=== PATIENT | female | born 1935 | race Caucasian/White ===

== ENCOUNTER 2017-10-16 14:28 | Inpatient (IN) | payer MEDICARE, MEDICAID ==
[~2017-10-16] VITALS: Ht 149.9 cm; Wt 81.6 kg
[2017-10-16 15:11] LABS: BASOPHILS # (AUTO) 0.1 K/uL (0.0-8.0); BASOPHILS % (AUTO) 0.5 % (0.0-2.0); EOSINOPHILS # (AUTO) 0.3 K/uL (0.0-0.7); HEMATOCRIT 38.7 % (31.2-41.9); HEMOGLOBIN 13.1 g/dL (10.9-14.3); LYMPHOCYTES # (AUTO) 3.5 K/uL (20.0-40.0); LYMPHOCYTES % (AUTO) 35.2 % (20.5-51.5); MEAN CORPUSCULAR HEMOGLOBIN 34.1 uug (24.7-32.8); MEAN CORPUSCULAR HGB CONC 34 g/dL (32.3-35.6); MEAN CORPUSCULAR VOLUME 100.3 fL (75.5-95.3); MONOCYTES % (AUTO) 9.9 % (0.0-11.0); NEUTROPHILS # (AUTO) 5.1 K/uL (1.8-8.9); NEUTROPHILS % (AUTO) 51.4 % (38.5-71.5); PLATELET COUNT (AUTO) 276 K/uL (179-408); RED BLOOD CELL COUNT(AUTO) 3.86 MIL/uL (3.63-4.92); WHITE BLOOD COUNT (AUTO) 9.9 K/uL (3.8-11.8)
[2017-10-16 15:20] LABS: CARBON DIOXIDE 23 mmol/L (21-32); CHLORIDE 107 mmol/L (98-107); CREATININE 0.6 mg/dL (0.6-1.3); GLUCOSE 55 mg/dL (74-106); POTASSIUM 3.6 mmol/L (3.5-5.1); UREA NITROGEN, BLOOD 14 mg/dL (7-18)
[2017-10-16 15:25] LABS: ALANINE AMINOTRANSFERASE 23 U/L (14-59); ALKALINE PHOSPHATASE 89 U/L (50-136); ASPARTATE AMINOTRANSFERASE 36 U/L (15-37); BILIRUBIN,DIRECT 0.1 mg/dL (0.0-0.2); BILIRUBIN,TOTAL 0.5 mg/dL (0.2-1.0); TOTAL PROTEIN, SERUM 7.4 g/dL (6.4-8.2)
--- NOTE | 2017-10-16 15:25 | NUR ---
PT IS IN ROOM #2A. DR CASANOVA EVALUATED THE PT.
[2017-10-16 15:26] LABS: ETHANOL < 3 MG/DL (0-0)
[2017-10-16] MEDS ORDERED: LISPRO SQ (15:30)
[2017-10-16] MEDS ORDERED: DONE5TAB34 PO (15:30)
[2017-10-16] MEDS ORDERED: MAGN400O6 PO (15:30)
[2017-10-16] MEDS ORDERED: MAG355OR18 PO (15:30)
[2017-10-16] MEDS ORDERED: LEVO125T PO (15:30)
[2017-10-16] MEDS ORDERED: FLUO10CA26 PO (15:30)
[2017-10-16] MEDS ORDERED: ATOR20TA PO (15:30)
[2017-10-16] MEDS ORDERED: ALBU2.5V38 IH (15:30)
[2017-10-16] MEDS ORDERED: BISA10SU12 RC (15:30)
[2017-10-16] MEDS ORDERED: GLIP10TA11 PO (15:30)
[2017-10-16] MEDS ORDERED: AMLO5TAB2 PO (15:30)
[2017-10-16] MEDS ORDERED: ACET325C PO (15:30)
[2017-10-16] MEDS ORDERED: BLOO-140 IN (15:30)
[2017-10-16] MEDS ORDERED: BENA20TA9 PO (15:30)
[2017-10-16] MEDS ORDERED: QUET25TA PO ×3 (15:30)
[2017-10-16] MEDS ORDERED: ASPI-605 PO (15:30)
[2017-10-16 15:42] LABS: *BILIRUBIN,URIN NEGATIVE (NEGATIVE); *BLOOD, URINE NEGATIVE (NEGATIVE); *COLOR,URINE YELLOW (YELLOW); *KETONES,URINE NEGATIVE (NEGATIVE); *PROTEIN,URINE NEGATIVE (NEGATIVE); *UROBILINOGEN,URINE 0.2 E.U./dl (NORMAL); LEUKOCYTE ESTERASE ,URINE 1+ (NEGATIVE); NITRITE, URINE NEGATIVE (NEGATIVE); PH,URINE 6.5 (5.0-8.0); UGLUCOSE NEGATIVE (NEGATIVE)
[2017-10-16 15:46] LABS: *CLARITY,URINE SLIGHTLY HAZY (CLEAR)
[2017-10-16 15:47] LABS: BACTERIA,URINE MODERATE /HPF (NONE SEEN); SQUAMOUS EPITHELIAL CELL,UR MODERATE /HPF (NONE SEEN)
[2017-10-16 15:53] LABS: *AMPHETAMINE, URINE NEGATIVE (NEGATIVE); *BARBITURATE, URINE NEGATIVE (NEGATIVE); *CANNABINOID, URINE NEGATIVE (NEGATIVE); *COCCAINE, URINE NEGATIVE (NEGATIVE); *OPIATE, URINE NEGATIVE (NEGATIVE); *PHENCYCLIDINE SCREEN,URINE NEGATIVE (NEGATIVE)
[2017-10-16 15:56] LABS: THYROID STIMULATING HORMONE 0.561 mIU/mL (0.358-3.740)
[2017-10-16] MEDS ORDERED: IV NORMAL SALINE 1000 ML BAG IV ONE (16:00)
--- NOTE | 2017-10-16 16:35 | NUR ---
MARCELLUS LYNN EVALUATED THE PT.
--- NOTE | 2017-10-16 16:55 | NUR ---
REPORT WAS GIVEN TO MHU RN. PT WAS TRANSFERED TO ROOM #140B.
[2017-10-16] MEDS ORDERED: MAG HYDROX/AL HYDROX/SIMETH 30 ML LIQUID UDC PO PRN ×2 (17:45→18:15)
[2017-10-16] MEDS ORDERED: BISACODYL 10 MG SUPP.RECT RC PRN (17:45)
[2017-10-16] MEDS ORDERED: ACETAMINOPHEN 325 MG TABLET PO PRN ×2 (17:45→18:15)
[2017-10-16] MEDS ORDERED: HYDROCODONE/APAP 5-325MG TABLET PO PRN (17:45)
[2017-10-16] MEDS ORDERED: ALBUTEROL SULFATE 2.5 MG/3 ML NEBU IH PRN (17:45)
[2017-10-16] MEDS ORDERED: MAGNESIUM HYDROXIDE 30 ML LIQUID UDC PO PRN ×3 (17:45→18:15)
[2017-10-16] MEDS ORDERED: Z GUARD REMEDY PASTE 57 GM TUBE TOP PRN (17:45)
[2017-10-16] MEDS ORDERED: ONDANSETRON 4 MG/2 ML VIAL IV PRN (17:45)
[2017-10-16] MEDS ORDERED: DEXTROSE 50% 50 ML DISP.SYRIN IV PRN (17:45)
[2017-10-16] MEDS ORDERED: ZOLPIDEM 5 MG TABLET PO PRN (18:15)
[2017-10-16] MEDS ORDERED: LORAZEPAM 0.5 MG TABLET PO PRN (18:15)
[2017-10-16] MEDS ORDERED: LORAZEPAM 1 MG TABLET PO PRN (19:15)
[2017-10-16] MEDS: ATORVASTATIN 20 MG TABLET PO SCH (20:04)
[2017-10-16] MEDS: BLOOD SUGAR DIAGNOSTIC 1 EACH STRIP VI SCH (20:08)
[2017-10-16 20:30] VITALS: BP 162/68
[2017-10-16] MEDS ORDERED: DONEPEZIL 5 MG TABLET PO SCH (21:00)
--- NOTE | 2017-10-16 21:45 | NUR ---
Pt EASILY AGITATED AND ANGRY. REFUSED SKIN ASSESSMENT. WILL ENDORSE TO DAY SHIFT NURSE. FITTER UP AWARE.
[2017-10-17] MEDS: BLOOD SUGAR DIAGNOSTIC 1 EACH STRIP VI SCH ×4 (06:46→21:15)
[2017-10-17] MEDS: LEVOTHYROXINE SODIUM 125 MCG TABLET PO SCH (06:46)
[2017-10-17 07:30] VITALS: BP 158/65
[2017-10-17 07:40] LABS: BASOPHILS # (AUTO) 0.1 K/uL (0.0-8.0); BASOPHILS % (AUTO) 0.7 % (0.0-2.0); EOSINOPHILS # (AUTO) 0.3 K/uL (0.0-0.7); EOSINOPHILS % (AUTO) 4.2 % (0.0-7.0); HEMATOCRIT 36.6 % (31.2-41.9); HEMOGLOBIN 12.5 g/dL (10.9-14.3); LYMPHOCYTES # (AUTO) 1.7 K/uL (20.0-40.0); LYMPHOCYTES % (AUTO) 22.9 % (20.5-51.5); MEAN CORPUSCULAR HEMOGLOBIN 34.4 uug (24.7-32.8); MEAN CORPUSCULAR HGB CONC 34 g/dL (32.3-35.6); MONOCYTES # (AUTO) 0.6 K/uL (2.0-10.0); MONOCYTES % (AUTO) 8.8 % (0.0-11.0); NEUTROPHILS # (AUTO) 4.6 K/uL (1.8-8.9); NEUTROPHILS % (AUTO) 63.4 % (38.5-71.5); PLATELET COUNT (AUTO) 234 K/uL (179-408); RED BLOOD CELL COUNT(AUTO) 3.62 MIL/uL (3.63-4.92); WHITE BLOOD COUNT (AUTO) 7.3 K/uL (3.8-11.8)
[2017-10-17 08:00] LABS: CARBON DIOXIDE 25 mmol/L (21-32); CHLORIDE 105 mmol/L (98-107); CHOLESTEROL 120 mg/dL (<200); CREATININE 0.7 mg/dL (0.6-1.3); GLUCOSE 155 mg/dL (74-106); HDL CHOLESTEROL 50 mg/dL (40-60); MAGNESIUM 1.6 mg/dL (1.8-2.4); PHOSPHOROUS 2.7 mg/dL (2.5-4.9); POTASSIUM 3.6 mmol/L (3.5-5.1); TRIGLYCERIDES 118 MG/DL (30-150); UREA NITROGEN, BLOOD 10 mg/dL (7-18)
[2017-10-17 08:12] LABS: THYROID STIMULATING HORMONE 0.577 mIU/mL (0.358-3.740)
[2017-10-17 08:42] LABS: CREATINE KINASE, TOTAL 482 U/L (26-192)
[2017-10-17] MEDS: AMLODIPINE 5 MG TABLET PO SCH (09:18)
[2017-10-17] MEDS: BENAZEPRIL HCL 20 MG TABLET PO SCH (09:19)
[2017-10-17] MEDS: ASPIRIN EC 81 MG TABLET.DR PO SCH (09:19)
[2017-10-17] MEDS ORDERED: MAGNESIUM OXIDE 400 MG TABLET PO ONE (13:30)
--- NOTE | 2017-10-17 14:53 | NUR ---
Patient refuse to insulin. medication given. left rib xray done without fracture result. skin assessment given. skin intact. magnesium oxide given one time for hypomagnesia. will continue monitor
[2017-10-17] MEDS: INSULIN REGULAR, HUMAN 300 UNIT/3 ML VIAL SQ PRN ×2 (16:09→21:18)
[2017-10-17 16:51] VITALS: BP 142/70
[2017-10-17 20:00] VITALS: BP 136/55
[2017-10-17] MEDS: ATORVASTATIN 20 MG TABLET PO SCH (21:15)
[2017-10-17] MEDS: DONEPEZIL 5 MG TABLET PO SCH (21:15)
[2017-10-17] MEDS: QUETIAPINE FUMARATE 25 MG TABLET PO SCH (21:15)
[2017-10-18] MEDS: LEVOTHYROXINE SODIUM 125 MCG TABLET PO SCH (06:26)
[2017-10-18] MEDS: BLOOD SUGAR DIAGNOSTIC 1 EACH STRIP VI SCH ×4 (06:38→20:41)
[2017-10-18 07:30] VITALS: BP 167/84
[2017-10-18] MEDS: ASPIRIN EC 81 MG TABLET.DR PO SCH (08:25)
[2017-10-18] MEDS: BENAZEPRIL HCL 20 MG TABLET PO SCH (08:25)
[2017-10-18] MEDS: FLUOXETINE HCL 10 MG CAPSULE PO SCH (08:25)
[2017-10-18] MEDS: AMLODIPINE 5 MG TABLET PO SCH (08:25)
[2017-10-18] MEDS: CEPHALEXIN MONOHYDRATE 500 MG CAPSULE PO SCH ×2 (08:25→17:30)
[2017-10-18] MEDS: INSULIN REGULAR, HUMAN 300 UNIT/3 ML VIAL SQ PRN ×4 (08:26→20:42)
[2017-10-18 12:29] VITALS: BP 136/72
[2017-10-18 16:43] VITALS: BP 139/70
[2017-10-18 19:30] VITALS: BP 119/53
[2017-10-18] MEDS: QUETIAPINE FUMARATE 25 MG TABLET PO SCH (20:07)
[2017-10-18] MEDS: ATORVASTATIN 20 MG TABLET PO SCH (20:07)
[2017-10-18] MEDS: DONEPEZIL 5 MG TABLET PO SCH (20:07)
[2017-10-19] MEDS: LEVOTHYROXINE SODIUM 125 MCG TABLET PO SCH (06:21)
[2017-10-19] MEDS: BLOOD SUGAR DIAGNOSTIC 1 EACH STRIP VI SCH ×4 (06:35→21:28)
--- NOTE | 2017-10-19 06:45 | NUR ---
Pt refused insulin last night. Blood glucose in am was 163. Slept 8.0 hrs. Refused shower in Am. SAfety measures rendered.
[2017-10-19 07:30] VITALS: BP 129/65
[2017-10-19] MEDS: AMLODIPINE 5 MG TABLET PO SCH (08:28)
[2017-10-19] MEDS: BENAZEPRIL HCL 20 MG TABLET PO SCH (08:28)
[2017-10-19] MEDS: ASPIRIN EC 81 MG TABLET.DR PO SCH (08:28)
[2017-10-19] MEDS: FLUOXETINE HCL 10 MG CAPSULE PO SCH (08:28)
[2017-10-19] MEDS: INSULIN REGULAR, HUMAN 300 UNIT/3 ML VIAL SQ PRN ×3 (08:28→16:32)
[2017-10-19] MEDS: CEPHALEXIN MONOHYDRATE 500 MG CAPSULE PO SCH ×2 (08:28→16:32)
--- NOTE | 2017-10-19 12:21 | NUR ---
Initial discharge instructions: Patient currently resides at [facility] [[address], [place] [address]; ]. Per pt, she would like to return there upon discharge. Spoke with Meliza at the facility who states they will be able to accept the patient back SW will speak with pt's daughter, Rigo Milton ([phone]). IRVIN will continue to collaborate with pt, family, and MD regarding discharge planning needs. SW will form a safe and proper discharge plan.
[2017-10-19 15:58] VITALS: BP 149/73
[2017-10-19 19:30] VITALS: BP 166/77
[2017-10-19] MEDS: QUETIAPINE FUMARATE 25 MG TABLET PO SCH (20:40)
[2017-10-19] MEDS: ATORVASTATIN 20 MG TABLET PO SCH (20:40)
[2017-10-19] MEDS: DONEPEZIL 5 MG TABLET PO SCH (20:40)
--- NOTE | 2017-10-20 00:17 | NUR ---
Pt observed sitting in her room on the bed. Pt complied with medication administration. Pt instructed to let staff know if she would like a chef assistant. Pt observed saying "robyn", "felicity". Pt does not want insulin administration, BS 172 @ 2050. Will continue to monitor
[2017-10-20] MEDS: LEVOTHYROXINE SODIUM 125 MCG TABLET PO SCH (06:18)
[2017-10-20] MEDS: BLOOD SUGAR DIAGNOSTIC 1 EACH STRIP VI SCH ×2 (06:19→11:40)
--- NOTE | 2017-10-20 07:08 | NUR ---
Pt was isolative in room, pt complied with meds, BS 162 @ 0792, pt refused AM shower, pt was pleasant and slept 7 hours.
[2017-10-20 07:30] VITALS: BP 120/52
[2017-10-20 07:40] LABS: BASOPHILS % (AUTO) 0.6 % (0.0-2.0); CARBON DIOXIDE 28 mmol/L (21-32); CHLORIDE 104 mmol/L (98-107); CREATININE 0.7 mg/dL (0.6-1.3); EOSINOPHILS # (AUTO) 0.3 K/uL (0.0-0.7); EOSINOPHILS % (AUTO) 3.4 % (0.0-7.0); GLUCOSE 177 mg/dL (74-106); HEMATOCRIT 38.6 % (31.2-41.9); HEMOGLOBIN 13.2 g/dL (10.9-14.3); LYMPHOCYTES % (AUTO) 24.8 % (20.5-51.5); MEAN CORPUSCULAR HEMOGLOBIN 34.1 uug (24.7-32.8); MEAN CORPUSCULAR HGB CONC 34 g/dL (32.3-35.6); MEAN CORPUSCULAR VOLUME 99.7 fL (75.5-95.3); MONOCYTES # (AUTO) 0.8 K/uL (2.0-10.0); MONOCYTES % (AUTO) 9.7 % (0.0-11.0); NEUTROPHILS # (AUTO) 4.8 K/uL (1.8-8.9); NEUTROPHILS % (AUTO) 61.5 % (38.5-71.5); PLATELET COUNT (AUTO) 258 K/uL (179-408); POTASSIUM 3.9 mmol/L (3.5-5.1); RED BLOOD CELL COUNT(AUTO) 3.87 MIL/uL (3.63-4.92); UREA NITROGEN, BLOOD 15 mg/dL (7-18); WHITE BLOOD COUNT (AUTO) 7.9 K/uL (3.8-11.8)
--- NOTE | 2017-10-20 08:00 | NUR ---
received report from shift leader nurse. pt vitals stable. pt refused to have insulin. pt took other medications as well. pt will be discharged to [facility]. no injuries. pt able to use walker with steady gait. no signs of complications. will continue to monitor
[2017-10-20] MEDS: CEPHALEXIN MONOHYDRATE 500 MG CAPSULE PO SCH (08:18)
[2017-10-20] MEDS: BENAZEPRIL HCL 20 MG TABLET PO SCH (08:18)
[2017-10-20 08:19] VITALS: BP 120/52
[2017-10-20] MEDS: ASPIRIN EC 81 MG TABLET.DR PO SCH (08:19)
[2017-10-20] MEDS: FLUOXETINE HCL 10 MG CAPSULE PO SCH (08:19)
[2017-10-20] MEDS: AMLODIPINE 5 MG TABLET PO SCH (08:19)
[2017-10-20] MEDS: INSULIN REGULAR, HUMAN 300 UNIT/3 ML VIAL SQ PRN (08:21)
--- NOTE | 2017-10-20 09:10 | NUR ---
Discharge Note: Patient will be discharged back to [facility] [[address], [place] [address]; ] via private transportation at 11:30am. Spoke with Meliza at the facility who has agreed to arrange transportation for the patient, and states they are ready to accept the patient today. Left a message for patients daughter, Rigo ([phone]) to alert about patients discharge. Patient is alert and oriented x3, denies SI/HI, and is cooperative with discharge plans. Patient will follow up at the facility with Dr. Reddy (Acupressurist) and Dr. Castellon (Psychiatrist).
== END 2017-10-20 12:35 | DRG 881 ==
LOC: ER 14:29 → GPS 16:55
PROVIDERS: ADMIT Psychiatry & Neurology Psychiatry; ATTEND Nurse Practitioner Acute Care
DX: F32.9 Major depressive disorder, single episode, unspecified (principal); F03.91 Unspecified dementia, unspecified severity, with behavioral disturbance; N39.0 Urinary tract infection, site not specified; M62.82 Rhabdomyolysis; E44.1 Mild protein-calorie malnutrition; E03.9 Hypothyroidism, unspecified; E66.9 Obesity, unspecified; Z68.36 Body mass index [BMI] 36.0-36.9, adult; I10 Essential (primary) hypertension; E78.5 Hyperlipidemia, unspecified; Z79.84 Long term (current) use of oral hypoglycemic drugs; Z79.899 Other long term (current) drug therapy; E88.09 Other disorders of plasma-protein metabolism, not elsewhere classified; E11.649 Type 2 diabetes mellitus with hypoglycemia without coma; Z79.82 Long term (current) use of aspirin; Z87.81 Personal history of (healed) traumatic fracture
CPT/HCPCS: 36415; 71045; 71101; 80307; 83735; 84100; 84443; 85025; 87086; 93005; A4663; G0480; J1815; J7040

== ENCOUNTER 2018-05-13 19:18 | Inpatient (IN) | payer MEDICARE, MEDICAID, OTHER ==
[~2018-05-13] VITALS: Ht 149.9 cm; Wt 71.7 kg
[~2018-05-13 19:18] MED LIST: ACET325C3 PO; ALBU2.5V38 IH; AMLO5TAB9 PO; ASPI-605 PO; ATOR20TA PO; BENA20TA9 PO; BISA10SU12 RC; BLOO-140 IN; FLUO10CA26 PO; GLIP10TA11 PO; LEVO125T PO; LISPRO SQ; MAG355OR18 PO; MAGN400O6 PO; QUET25TA PO
--- NOTE | 2018-05-13 19:50 | NUR ---
Patient here for eval from Izzy Johnson. No available sitter at this time per Nursing Creative Services Specialist. Patient AAOx4. Speech is clear, speaks in complete sentences. No respiratory distress noted. No cough, no sob. No cardiovascular distress, all pulses palpable. No Gi/ distress noted. Patient in lowest position on bed, siderails up x2, fall precautions implemented per protocol.
[2018-05-13] MEDS ORDERED: DONE5TAB34 PO (19:59)
[2018-05-13] MEDS ORDERED: METF-442 PO (19:59)
[2018-05-13 20:28] LABS: BASOPHILS # (AUTO) 0.1 K/uL (0.0-8.0); BASOPHILS % (AUTO) 0.6 % (0.0-2.0); EOSINOPHILS # (AUTO) 0.3 K/uL (0.0-0.7); EOSINOPHILS % (AUTO) 4.3 % (0.0-7.0); HEMATOCRIT 37.5 % (31.2-41.9); HEMOGLOBIN 12.7 g/dL (10.9-14.3); LYMPHOCYTES # (AUTO) 1.8 K/uL (20.0-40.0); MEAN CORPUSCULAR HEMOGLOBIN 34.3 uug (24.7-32.8); MEAN CORPUSCULAR HGB CONC 34 g/dL (32.3-35.6); MEAN CORPUSCULAR VOLUME 101.1 fL (75.5-95.3); MONOCYTES # (AUTO) 0.4 K/uL (2.0-10.0); MONOCYTES % (AUTO) 5.6 % (0.0-11.0); NEUTROPHILS # (AUTO) 5.4 K/uL (1.8-8.9); NEUTROPHILS % (AUTO) 66.5 % (38.5-71.5); PLATELET COUNT (AUTO) 269 K/uL (179-408); RED BLOOD CELL COUNT(AUTO) 3.71 MIL/uL (3.63-4.92)
[2018-05-13 20:38] LABS: CARBON DIOXIDE 16 mmol/L (21-32); CHLORIDE 106 mmol/L (98-107); CREATININE 1.2 mg/dL (0.6-1.3); GLUCOSE 144 mg/dL (74-106); POTASSIUM 3.8 mmol/L (3.5-5.1); UREA NITROGEN, BLOOD 19 mg/dL (7-18)
[2018-05-13 20:45] LABS: ALANINE AMINOTRANSFERASE 22 U/L (14-59); ALKALINE PHOSPHATASE 62 U/L (50-136); ASPARTATE AMINOTRANSFERASE 24 U/L (15-37); BILIRUBIN,DIRECT 0.1 mg/dL (0.0-0.2); BILIRUBIN,TOTAL 0.4 mg/dL (0.2-1.0); ETHANOL < 3 MG/DL (0-0); TOTAL PROTEIN, SERUM 6.7 g/dL (6.4-8.2)
[2018-05-13 20:46] LABS: ACETAMINOPHEN < 2.0 ug/mL (10-30)
[2018-05-13 21:06] LABS: *BILIRUBIN,URIN NEGATIVE (NEGATIVE); *CLARITY,URINE CLOUDY (CLEAR); *COLOR,URINE YELLOW (YELLOW); *KETONES,URINE TRACE (NEGATIVE); LEUKOCYTE ESTERASE ,URINE 2+ (NEGATIVE); NITRITE, URINE NEGATIVE (NEGATIVE); PH,URINE 5.5 (5.0-8.0); UGLUCOSE NEGATIVE (NEGATIVE)
[2018-05-13 21:15] LABS: *BLOOD, URINE TRACE (NEGATIVE)
--- NOTE | 2018-05-13 21:17 | NUR ---
Per ER MD, patient is medically cleared. Phone call made to Art from crisis team. Art is on the way.
[2018-05-13 21:18] LABS: *AMPHETAMINE, URINE NEGATIVE (NEGATIVE); *BARBITURATE, URINE NEGATIVE (NEGATIVE); *CANNABINOID, URINE NEGATIVE (NEGATIVE); *COCCAINE, URINE NEGATIVE (NEGATIVE); *OPIATE, URINE NEGATIVE (NEGATIVE); *PHENCYCLIDINE SCREEN,URINE NEGATIVE (NEGATIVE)
[2018-05-13 21:19] LABS: BACTERIA,URINE MANY /HPF (NONE SEEN); SQUAMOUS EPITHELIAL CELL,UR MODERATE /HPF (NONE SEEN); WBC,URINE 50-80 /HPF (0-3)
[2018-05-13 21:20] LABS: MUCUS,URINE MANY /LPF (0-FEW)
--- NOTE | 2018-05-13 21:20 | NUR ---
Patient in bed at lowest position, side rails upx2. Patient asleep NAD, VSS.
--- NOTE | 2018-05-13 22:49 | NUR ---
Patient in bed asleep. EMMA, JESSE.
[2018-05-13] MEDS ORDERED: LEVOFLOXACIN 750 MG TABLET ONE (23:26)
[2018-05-13] MEDS ORDERED: LEVOFLOXACIN 750 MG TABLET PO ONE (23:30)
--- NOTE | 2018-05-14 00:07 | NUR ---
Gave report to Jake LOCKWOOD
--- NOTE | 2018-05-14 00:40 | NUR ---
Patient transfered to MHU in stable condition.
--- NOTE | 2018-05-14 00:40 | NUR ---
Pt. admitted to MHU, under care of Dr. Giordano Belongs List completed
[2018-05-14] MEDS ORDERED: TEMAZEPAM 7.5 MG CAPSULE PO PRN (00:45)
[2018-05-14] MEDS ORDERED: ACETAMINOPHEN 325 MG TABLET PO PRN (00:45)
[2018-05-14] MEDS ORDERED: MAGNESIUM HYDROXIDE 30 ML LIQUID UDC PO PRN ×2 (00:45→07:45)
[2018-05-14] MEDS ORDERED: CLONAZEPAM 0.5 MG TABLET PO PRN (00:45)
[2018-05-14] MEDS ORDERED: MAG HYDROX/AL HYDROX/SIMETH 30 ML LIQUID UDC PO PRN ×2 (00:45→07:45)
--- NOTE | 2018-05-14 00:45 | NUR ---
ADMITTED PT FROM ER VIA W/C, CALM & COOPERATIVE, NO SIGNS OF AGGRESSIONS. UNDERSTAND & SPEAK URDU ONLY, UNABLE TO DO NRSG. ASSESSTMENT.PT. REFUSED TO CHANGE TO PT. SINGH. STATED SHE IS TIRED & WANT TO SLEEP. NOT IN ANY DISTRESS.
--- NOTE | 2018-05-14 01:30 | NUR ---
SLEEPING AT THIS TIME.
--- NOTE | 2018-05-14 06:20 | NUR ---
called antonietta callejas, daughter to update pts. condition
[2018-05-14 07:30] VITALS: BP 107/68
[2018-05-14] MEDS ORDERED: BISACODYL 10 MG SUPP.RECT RC PRN (07:45)
[2018-05-14] MEDS ORDERED: Medication Not On Formulary EA (Acetaminophen 650 MG) PO PRN (07:45)
[2018-05-14] MEDS ORDERED: ALBUTEROL SULFATE 2.5 MG/3 ML NEBU IH PRN (07:45)
[2018-05-14] MEDS ORDERED: DEXTROSE 50% 50 ML DISP.SYRIN IV PRN (08:45)
[2018-05-14] MEDS ORDERED: Medication Not On Formulary EA (Metformin Hcl 1,000 MG) PO SCH (09:00)
[2018-05-14] MEDS: ASPIRIN EC 81 MG TABLET.DR PO SCH (09:28)
[2018-05-14] MEDS: BLOOD SUGAR DIAGNOSTIC 1 EACH STRIP VI SCH ×3 (12:39→21:21)
--- NOTE | 2018-05-14 12:39 | NUR ---
Initial Discharge Instructions: Patient is a current resident of [facility] [[address], [place] [address]; [phone]]. Per pt, she enjoys living there and would like to return. Spoke with pt's daughter, Rigo Milton ([phone]) who states she would like her mother to return to [facility] when ready for discharge. Spoke with Meliza at the facility who reports that the patient can return when stable for discharge. SW will continue to collaborate with pt, family, and MD regarding most appropriate discharge plans for this patient. SW will form a safe and proper discharge.
[2018-05-14] MEDS: FLUOXETINE HCL 20 MG CAPSULE PO SCH (13:06)
[2018-05-14] MEDS: BENAZEPRIL HCL 20 MG TABLET PO SCH ×2 (13:07→13:22)
[2018-05-14] MEDS: AMLODIPINE 5 MG TABLET PO SCH (13:08)
[2018-05-14] MEDS: CEphaleXIN 500 MG CAPSULE PO SCH ×2 (13:10→21:23)
[2018-05-14] MEDS: QUETIAPINE FUMARATE 25 MG TABLET PO SCH ×2 (13:10→17:17)
[2018-05-14 16:00] VITALS: BP 116/69
--- NOTE | 2018-05-14 19:00 | NUR ---
1744 PATIENT FOUND ON THE SITTING ON THE FLOOR. NO INJURY NOTED. V/S TAKEN AND RECORDED. 1810 EQUIPMENT ENGINEER, MARI TUCKER NOTIFIED WITH NO NEW ORDER, 1814 PATIENT DAUGHTER, NAA NOTIFIED ABOUT THE FALL INCIDENT. ENDORSED TO NEXT SHIFT TO MONITOR PATIENT ANY ABNORMAL SYMPTOMS RELATED TO FALL.
[2018-05-14 20:30] VITALS: BP 93/67
[2018-05-14] MEDS: INSULIN REGULAR, HUMAN 300 UNIT/3 ML VIAL SQ PRN (21:23)
[2018-05-14] MEDS: ATORVASTATIN 20 MG TABLET PO SCH (21:23)
[2018-05-15] MEDS: CEphaleXIN 500 MG CAPSULE PO SCH ×3 (06:05→21:13)
[2018-05-15] MEDS: BLOOD SUGAR DIAGNOSTIC 1 EACH STRIP VI SCH ×4 (06:31→21:05)
[2018-05-15 07:30] VITALS: BP 107/53
[2018-05-15] MEDS: BENAZEPRIL HCL 20 MG TABLET PO SCH (09:00)
[2018-05-15] MEDS: AMLODIPINE 5 MG TABLET PO SCH (09:00)
[2018-05-15] MEDS: ASPIRIN EC 81 MG TABLET.DR PO SCH (10:51)
[2018-05-15] MEDS: FLUOXETINE HCL 20 MG CAPSULE PO SCH (10:51)
[2018-05-15] MEDS: QUETIAPINE FUMARATE 25 MG TABLET PO SCH ×2 (10:51→17:16)
[2018-05-15 16:58] VITALS: BP 106/64
[2018-05-15] MEDS: ATORVASTATIN 20 MG TABLET PO SCH (20:30)
[2018-05-15 21:30] VITALS: BP 127/64
[2018-05-16] MEDS: CEphaleXIN 500 MG CAPSULE PO SCH ×3 (06:14→22:23)
[2018-05-16] MEDS: BLOOD SUGAR DIAGNOSTIC 1 EACH STRIP VI SCH ×4 (06:25→20:00)
[2018-05-16 07:30] VITALS: BP 100/63
[2018-05-16] MEDS: BENAZEPRIL HCL 20 MG TABLET PO SCH (08:16)
[2018-05-16] MEDS: FLUOXETINE HCL 20 MG CAPSULE PO SCH (08:17)
[2018-05-16] MEDS: AMLODIPINE 5 MG TABLET PO SCH (08:17)
[2018-05-16] MEDS: QUETIAPINE FUMARATE 25 MG TABLET PO SCH ×3 (08:17→16:58)
[2018-05-16] MEDS: ASPIRIN EC 81 MG TABLET.DR PO SCH (08:19)
[2018-05-16] MEDS: INSULIN REGULAR, HUMAN 300 UNIT/3 ML VIAL SQ PRN ×3 (08:26→20:03)
[2018-05-16 15:36] VITALS: BP 92/52
[2018-05-16 20:00] VITALS: BP 115/69
[2018-05-16] MEDS: ATORVASTATIN 20 MG TABLET PO SCH (20:00)
[2018-05-17] MEDS: CEphaleXIN 500 MG CAPSULE PO SCH ×3 (06:33→21:19)
[2018-05-17] MEDS: BLOOD SUGAR DIAGNOSTIC 1 EACH STRIP VI SCH ×4 (06:33→21:20)
[2018-05-17 07:30] VITALS: BP 131/58
[2018-05-17] MEDS: FLUOXETINE HCL 20 MG CAPSULE PO SCH (08:58)
[2018-05-17] MEDS: ASPIRIN EC 81 MG TABLET.DR PO SCH (08:58)
[2018-05-17] MEDS: QUETIAPINE FUMARATE 25 MG TABLET PO SCH ×3 (08:58→17:18)
[2018-05-17] MEDS: AMLODIPINE 5 MG TABLET PO SCH (08:59)
[2018-05-17] MEDS: BENAZEPRIL HCL 20 MG TABLET PO SCH (08:59)
[2018-05-17 12:00] VITALS: BP 167/56
[2018-05-17] MEDS: INSULIN REGULAR, HUMAN 300 UNIT/3 ML VIAL SQ PRN ×3 (12:19→21:22)
[2018-05-17 15:09] VITALS: BP 110/53
[2018-05-17 20:03] VITALS: BP 100/53
[2018-05-17] MEDS: ATORVASTATIN 20 MG TABLET PO SCH (21:19)
--- NOTE | 2018-05-18 04:37 | NUR ---
Received patient in bed. AAO x1, confused. No acute distress was noted. Patient is calm and cooperative. No aggressive behavior noted. Compliant with medication. All due medication given as ordered. Accucheck done BS: 146 @2100, 2 units insulin coverage based on sliding scale. Safety measures maintained. Fall precaution observed. Continue to monitor and will endorse to the day shift nurse accordingly.
[2018-05-18] MEDS: CEphaleXIN 500 MG CAPSULE PO SCH ×3 (06:07→21:21)
[2018-05-18] MEDS: BLOOD SUGAR DIAGNOSTIC 1 EACH STRIP VI SCH ×4 (06:35→20:51)
[2018-05-18 07:30] VITALS: BP 92/51
[2018-05-18] MEDS: ASPIRIN EC 81 MG TABLET.DR PO SCH (08:33)
[2018-05-18] MEDS: BENAZEPRIL HCL 20 MG TABLET PO SCH (08:34)
[2018-05-18] MEDS: AMLODIPINE 5 MG TABLET PO SCH (08:35)
[2018-05-18] MEDS: FLUOXETINE HCL 20 MG CAPSULE PO SCH (08:35)
[2018-05-18] MEDS: QUETIAPINE FUMARATE 25 MG TABLET PO SCH ×3 (08:35→16:31)
--- NOTE | 2018-05-18 10:58 | NUR ---
Firearms Report: IRVIN completed and submitted [employer] Firearms Report for 5250 GD certification.
[2018-05-18] MEDS: INSULIN REGULAR, HUMAN 300 UNIT/3 ML VIAL SQ PRN ×3 (11:36→21:00)
[2018-05-18 16:52] VITALS: BP 98/62
--- NOTE | 2018-05-18 18:24 | NUR ---
received patien asleep on bed, alert, patient denies pain, assist patient with her breakfast, patient compliant to care and medicine, current BP at 92/51, anti HTN meds on hold as ordered, acchucheck at 11;30 at 249 , insulin was given per sliding scale, patient fall risk, non skid socks at all time, bed alarm was on for safety,remind the patient to use call light if need help, and made rounds frequently will continue monitor
--- NOTE | 2018-05-18 20:00 | NUR ---
RECEIVED PATIENT IN HER ROOM IN BED ASLEEP, BUT EASILY AROUSABLE. SHE IS NOTED A/O X 1, CALM AND PLEASANT UPON APPROACHED. UNSTEADY GAIT IS NOTED, (FALL PRECAUTION IN PLACE) BED AT LOWEST POSITION WITH WHEELS LOCKED ALARM ON AND FREQUENT HEAD CHECKS. NO AGGRESSIVE/COMBATIVE BX IS NOTED OR REPORTED AT THIS TIME. V/S STABLE, PT WAS REASSURED FOR HER SAFETY. WILL CONTINUE TO MONITOR.
[2018-05-18 20:27] VITALS: BP 97/51
[2018-05-18] MEDS: ATORVASTATIN 20 MG TABLET PO SCH (20:51)
[2018-05-19] MEDS: CEphaleXIN 500 MG CAPSULE PO SCH ×2 (06:12→13:21)
[2018-05-19] MEDS: BLOOD SUGAR DIAGNOSTIC 1 EACH STRIP VI SCH ×3 (06:48→16:17)
[2018-05-19 07:47] LABS: BASOPHILS # (AUTO) 0.1 K/uL (0.0-8.0); BASOPHILS % (AUTO) 1.2 % (0.0-2.0); EOSINOPHILS # (AUTO) 0.3 K/uL (0.0-0.7); EOSINOPHILS % (AUTO) 5.2 % (0.0-7.0); HEMOGLOBIN 12.4 g/dL (10.9-14.3); LYMPHOCYTES % (AUTO) 30.5 % (20.5-51.5); MEAN CORPUSCULAR HEMOGLOBIN 34.5 uug (24.7-32.8); MEAN CORPUSCULAR HGB CONC 34 g/dL (32.3-35.6); MEAN CORPUSCULAR VOLUME 102.7 fL (75.5-95.3); MONOCYTES # (AUTO) 0.5 K/uL (2.0-10.0); MONOCYTES % (AUTO) 7.2 % (0.0-11.0); NEUTROPHILS # (AUTO) 3.6 K/uL (1.8-8.9); NEUTROPHILS % (AUTO) 55.9 % (38.5-71.5); PLATELET COUNT (AUTO) 264 K/uL (179-408); RED BLOOD CELL COUNT(AUTO) 3.61 MIL/uL (3.63-4.92); WHITE BLOOD COUNT (AUTO) 6.5 K/uL (3.8-11.8)
[2018-05-19 08:00] LABS: CARBON DIOXIDE 21 mmol/L (21-32); CHLORIDE 109 mmol/L (98-107); CREATININE 0.9 mg/dL (0.6-1.3); GLUCOSE 98 mg/dL (74-106); MAGNESIUM 1.9 mg/dL (1.8-2.4); POTASSIUM 3.7 mmol/L (3.5-5.1); UREA NITROGEN, BLOOD 26 mg/dL (7-18)
[2018-05-19 08:03] VITALS: BP 110/59
[2018-05-19] MEDS: AMLODIPINE 5 MG TABLET PO SCH (08:35)
[2018-05-19] MEDS: QUETIAPINE FUMARATE 25 MG TABLET PO SCH ×2 (08:35→17:27)
[2018-05-19] MEDS: FLUOXETINE HCL 20 MG CAPSULE PO SCH (08:35)
[2018-05-19] MEDS: ASPIRIN EC 81 MG TABLET.DR PO SCH (08:35)
[2018-05-19] MEDS: BENAZEPRIL HCL 20 MG TABLET PO SCH (08:36)
[2018-05-19 16:15] VITALS: BP 106/54
[2018-05-19] MEDS: INSULIN REGULAR, HUMAN 300 UNIT/3 ML VIAL SQ PRN (16:54)
--- NOTE | 2018-05-19 17:16 | NUR ---
GROUP NOTE: Patients were asked to draw a picture of how they see themselves and reflect on picture. Subjective: "..." Objective: Patient was asleep and unable to be woken up. Assessment: Patient presented calm and was sleeping. shell worker unable to assess patient. Plan: shell worker will continue to encourage group attendance as scheduled. shell worker will continue to provide support to the patient to encourage interaction with peers.
--- NOTE | 2018-05-19 18:36 | NUR ---
received patient asleep on bed, arousable, patient assisted with her breakfast, compliant to medication, patient verbalizes that his cold, labs result return and updated attending physician, with DC order to Med surg unit , will continue monitor
[2018-05-19 18:42] LABS: *BILIRUBIN,URIN NEGATIVE (NEGATIVE); *BLOOD, URINE 3+ (NEGATIVE); *CLARITY,URINE SLIGHTLY CLOUDY (CLEAR); *COLOR,URINE YELLOW (YELLOW); *KETONES,URINE NEGATIVE (NEGATIVE); *UROBILINOGEN,URINE 0.2 E.U./dl (NORMAL); LEUKOCYTE ESTERASE ,URINE NEGATIVE (NEGATIVE); NITRITE, URINE NEGATIVE (NEGATIVE); PH,URINE 6.5 (5.0-8.0); UGLUCOSE NEGATIVE (NEGATIVE)
[2018-05-19 18:57] LABS: *URINE TOTAL PROTEIN RANDOM 18.4 mg/dL (<150/24HR)
[2018-05-19 19:02] LABS: BACTERIA,URINE FEW /HPF (NONE SEEN); RBC,URINE 80-100 /HPF (0-3); SQUAMOUS EPITHELIAL CELL,UR MANY /HPF (NONE SEEN)
--- NOTE | 2018-05-19 19:44 | NUR ---
Pt being transferred to med surg under the care of Geronimo for hyperthyroidism and weakness. Report given to Caridad in med surge. Pt a+ox2, VS stable, denies pain, in no acute physical distress at this time. Transferred via gurney with floor staff, all paperwork and chart sent, including 5250. Voicemail left for Pt's daughter Yarelis Milton regarding Pt transfer.
== END 2018-05-19 20:13 | disposition short-term general hospital (02) | DRG 885 ==
LOC: ER 19:18 → GPS 05-14 00:26
PROVIDERS: ADMIT Psychiatry & Neurology Psychiatry; ATTEND Nurse Practitioner Acute Care
DX: F33.3 Major depressive disorder, recurrent, severe with psychotic symptoms (principal); N17.0 Acute kidney failure with tubular necrosis; N39.0 Urinary tract infection, site not specified; E44.1 Mild protein-calorie malnutrition; B96.89 Other specified bacterial agents as the cause of diseases classified elsewhere; F03.90 Unspecified dementia, unspecified severity, without behavioral disturbance, psychotic disturbance, mood disturbance, and anxiety; E78.5 Hyperlipidemia, unspecified; E03.9 Hypothyroidism, unspecified; Z79.84 Long term (current) use of oral hypoglycemic drugs; Z79.51 Long term (current) use of inhaled steroids; Z79.899 Other long term (current) drug therapy; I25.10 Atherosclerotic heart disease of native coronary artery without angina pectoris; E86.0 Dehydration; R80.9 Proteinuria, unspecified; M62.81 Muscle weakness (generalized); J45.909 Unspecified asthma, uncomplicated; Z68.31 Body mass index [BMI] 31.0-31.9, adult; E66.9 Obesity, unspecified; Z71.3 Dietary counseling and surveillance; Z79.890 Hormone replacement therapy; Z91.19 Patient's noncompliance with other medical treatment and regimen; Z95.5 Presence of coronary angioplasty implant and graft; E11.8 Type 2 diabetes mellitus with unspecified complications
CPT/HCPCS: 36415; 71045; 80307; 83735; 84100; 84156; 84300; 84443; 85025; 93005; 97110; 97116; 97530; A4663; G0480; G0480-TC; J1815

== ENCOUNTER 2018-05-19 20:47 | Inpatient (IN) | payer MEDICARE, OTHER ==
[~2018-05-19] VITALS: Ht 157.5 cm; Wt 72.6 kg
[~2018-05-19 20:47] MED LIST changes: -BLOO-140 IN; -FLUO10CA26 PO; -GLIP10TA11 PO; -LEVO125T PO; -LISPRO SQ; +METF-442 PO; -QUET25TA PO
--- NOTE | 2018-05-19 21:00 | NUR ---
THIS IS AN 82 Y.O FEMALE TRANSFERRED FROM MHU. ADMITTING DX FOR GENERAL WEAKNESS AND HYPOTHROIDISM, SHES AAOX2 WITH CONFUSION, DENIES PAIN OR ANY DISTRESS ON ASSESSMENT. SHE HAS 1:1 SITTER FOR SAFETY. ADMISSION ASSESSMENT DONE PER PROTOCOL.
[2018-05-19] MEDS ORDERED: MAGNESIUM HYDROXIDE 30 ML LIQUID UDC PO PRN ×2 (21:30→22:00)
[2018-05-19] MEDS ORDERED: HYDROCODONE/APAP 5-325MG TABLET PO PRN (21:30)
[2018-05-19] MEDS ORDERED: ONDANSETRON 4 MG/2 ML VIAL IV PRN (21:30)
[2018-05-19] MEDS ORDERED: DEXTROSE 50% 50 ML DISP.SYRIN IV PRN (21:30)
[2018-05-19] MEDS ORDERED: ACETAMINOPHEN 325 MG TABLET PO PRN (21:30)
[2018-05-19] MEDS ORDERED: MAG HYDROX/AL HYDROX/SIMETH 30 ML LIQUID UDC PO PRN (22:00)
[2018-05-19] MEDS ORDERED: ALBUTEROL SULFATE 2.5 MG/3 ML NEBU IH PRN (22:00)
[2018-05-19] MEDS ORDERED: BISACODYL 10 MG SUPP.RECT RC PRN (22:00)
[2018-05-19] MEDS: BLOOD SUGAR DIAGNOSTIC 1 EACH STRIP VI SCH (22:09)
[2018-05-19] MEDS: INSULIN REGULAR, HUMAN 300 UNIT/3 ML VIAL SQ PRN (22:15)
[2018-05-19] MEDS ORDERED: LEVOTHYROXINE SODIUM 100 MCG VIAL IV ONE ×3 (22:30→23:39)
[2018-05-19] MEDS: CEphaleXIN 500 MG CAPSULE PO SCH (22:36)
[2018-05-19] MEDS: IV D5/ 0.9% NACL 1,000 ML IV PRN (22:36)
[2018-05-20] VITALS: BP 118/61
[2018-05-20 04:02] VITALS: BP 110/55
--- NOTE | 2018-05-20 05:51 | NUR ---
PATIENT SLEPT WELL THROUGHOUT THE SHIFT, NO S/S OF PAIN OR ANY DISTRESS ON THIS SHIFT. TEMP WNL 98.3 AT THIS TIME. SITTER REMAINS AT BEDSIDE CLOSELY MONITORING PATIENT
[2018-05-20] MEDS: CEphaleXIN 500 MG CAPSULE PO SCH ×3 (06:09→21:58)
[2018-05-20] MEDS: PANTOPRAZOLE SODIUM 40 MG TABLET.DR PO SCH (06:09)
[2018-05-20] MEDS: BLOOD SUGAR DIAGNOSTIC 1 EACH STRIP VI SCH ×4 (06:14→21:35)
[2018-05-20 07:20] LABS: BASOPHILS # (AUTO) 0.1 K/uL (0.0-8.0); BASOPHILS % (AUTO) 0.9 % (0.0-2.0); EOSINOPHILS # (AUTO) 0.3 K/uL (0.0-0.7); EOSINOPHILS % (AUTO) 4.4 % (0.0-7.0); HEMATOCRIT 36.4 % (31.2-41.9); HEMOGLOBIN 12.2 g/dL (10.9-14.3); LYMPHOCYTES # (AUTO) 1.3 K/uL (20.0-40.0); LYMPHOCYTES % (AUTO) 19.2 % (20.5-51.5); MEAN CORPUSCULAR HEMOGLOBIN 34.4 uug (24.7-32.8); MEAN CORPUSCULAR HGB CONC 33 g/dL (32.3-35.6); MONOCYTES # (AUTO) 0.4 K/uL (2.0-10.0); MONOCYTES % (AUTO) 6.1 % (0.0-11.0); NEUTROPHILS # (AUTO) 4.9 K/uL (1.8-8.9); NEUTROPHILS % (AUTO) 69.4 % (38.5-71.5); PLATELET COUNT (AUTO) 270 K/uL (179-408); RED BLOOD CELL COUNT(AUTO) 3.53 MIL/uL (3.63-4.92)
[2018-05-20 07:38] LABS: CARBON DIOXIDE 23 mmol/L (21-32); CHLORIDE 109 mmol/L (98-107); CHOLESTEROL 159 mg/dL (<200); CREATININE 0.8 mg/dL (0.6-1.3); GLUCOSE 171 mg/dL (74-106); HDL CHOLESTEROL 62 mg/dL (40-60); MAGNESIUM 1.8 mg/dL (1.8-2.4); PHOSPHOROUS 2.4 mg/dL (2.5-4.9); POTASSIUM 3.3 mmol/L (3.5-5.1); TRIGLYCERIDES 130 MG/DL (30-150); UREA NITROGEN, BLOOD 20 mg/dL (7-18)
[2018-05-20 07:44] VITALS: BP 100/51
[2018-05-20] MEDS: INSULIN REGULAR, HUMAN 300 UNIT/3 ML VIAL SQ PRN ×3 (08:56→21:39)
[2018-05-20] MEDS: ASPIRIN EC 81 MG TABLET.DR PO SCH (08:57)
[2018-05-20] MEDS ORDERED: BENAZEPRIL HCL 20 MG TABLET PO SCH (09:00)
[2018-05-20] MEDS ORDERED: AMLODIPINE 5 MG TABLET PO SCH (09:00)
[2018-05-20] MEDS: LEVOTHYROXINE SODIUM 125 MCG TABLET PO SCH (10:25)
[2018-05-20] MEDS ORDERED: POTASSIUM CHLORIDE 20 MEQ TAB.PRT.SR PO ONE (11:15)
[2018-05-20] MEDS ORDERED: NEUTRA PHOS PACKET PO ONE (11:15)
[2018-05-20 12:00] VITALS: BP 101/62
[2018-05-20] MEDS: IV D5/ 0.9% NACL 1,000 ML IV PRN (12:40)
[2018-05-20] MEDS: FLUOXETINE HCL 20 MG CAPSULE PO SCH (15:43)
[2018-05-20 16:00] VITALS: BP 106/66
[2018-05-20] MEDS: Z GUARD REMEDY PASTE 57 GM TUBE TOP PRN ×2 (17:44→20:36)
--- NOTE | 2018-05-20 18:32 | NUR ---
PATIENT WAS COOPERATIVE DURING THE SHIFT, MENTAL STATUS IS IMPROVING. GOOD APPETITE, GOOD FLUID INTAKE. PATIENT IS MAINLY IN BED NAPPING INTERMITTENTLY. AMBULATES TO THE BATHROOM WITH ASSISTANCE OF THE SITTER. PATIENT TOOK ALL HER MEDICATIONS. IV WAS SWITCHED TO THE RIGHT WRIST DUE TO PAIN. PATIENT HAS A DISCOLORATION OF THE TOE ON THE TOE ON THE RIGHT FOOT, PAINFUL TO TOUCH. XRAYS DONE. PATIENT IS ON VOLUNTARY STATUS NOW.
--- NOTE | 2018-05-20 19:00 | NUR ---
RECEIVED REPORT AT BEDSIDE FROM MELBA ROSE. PATIENT AWAKE AND ALERT IN BED. PATIENT HAS NO COMPLAINT OF PAIN OR DISCOMFORT AT THIS TIME. NO ACUTE DISTRESS NOTED OR OBSERVED BY THIS NURSE. 20 G IV IN RIGHT WRIST INTACT AND PATENT WITH IV FLUIDS INFUSING AT 75 mL/HR. 1:1 SITTER AT BEDSIDE FOR PATIENT SAFETY. CALL LIGHT WITHIN REACH AT ALL TIMES. ROOM AND FLOOR FREE OF CLUTTER. WILL CONTINUE TO MONITOR.
[2018-05-20 20:00] VITALS: BP 100/59
[2018-05-20] MEDS: QUETIAPINE FUMARATE 25 MG TABLET PO SCH (20:53)
[2018-05-20] MEDS ORDERED: LEVOTHYROXINE SODIUM 100 MCG VIAL IV SCH (21:00)
[2018-05-20] MEDS: ATORVASTATIN 20 MG TABLET PO SCH (21:35)
[2018-05-21] VITALS: BP 103/55
--- NOTE | 2018-05-21 | NUR ---
Patient resting comfortably, no sign of distress noted. IVF infusing wel, IV site patent. Sinus dedrick on Tele. 1:1 sitter in room for patient's safety.
[2018-05-21] MEDS: IV D5/ 0.9% NACL 1,000 ML IV PRN ×2 (01:01→17:37)
[2018-05-21 04:00] VITALS: BP 90/50
--- NOTE | 2018-05-21 05:00 | NUR ---
PATIENT ASLEEP, RESTING COMFORTABLY WITH 1:1 SITTER IN ROOM TO PROVIDE FOR PATIENT SAFETY. NO SIGNS OF ACUTE DISTRESS OR DISCOMFORT NOTED OR OBSERVED. IV ON RIGHT WRIST INTACT AND PATENT WITH D5ns RUNNING AT 75 mL/HR. CALL LIGHT WITHIN REACH AT ALL TIMES. ROOM AND FLOOR FREE OF CLUTTER. WILL CONTINUE TO MONITOR.
[2018-05-21] MEDS: BLOOD SUGAR DIAGNOSTIC 1 EACH STRIP VI SCH ×4 (06:06→21:59)
[2018-05-21] MEDS: CEphaleXIN 500 MG CAPSULE PO SCH ×3 (06:18→21:22)
[2018-05-21] MEDS: PANTOPRAZOLE SODIUM 40 MG TABLET.DR PO SCH (06:18)
[2018-05-21] MEDS: LEVOTHYROXINE SODIUM 125 MCG TABLET PO SCH (06:18)
--- NOTE | 2018-05-21 06:30 | NUR ---
PATIENT STILL C/O ON & OFF HEADACHE, TYLENOL 650 MG P.O ADM. DENIES CHEST PAIN AT THIS TIME. SINUS RHYTHM ON TELE. Addendum: 05/21/18 at 0735 by ANTONIO KABA RN PLS DISREGARD ABOVE NOTES WRONG ENTRY OF NOTES.
[2018-05-21 06:39] LABS: BASOPHILS # (AUTO) 0.1 K/uL (0.0-8.0); BASOPHILS % (AUTO) 1.1 % (0.0-2.0); EOSINOPHILS # (AUTO) 0.3 K/uL (0.0-0.7); EOSINOPHILS % (AUTO) 6.5 % (0.0-7.0); HEMATOCRIT 31.6 % (31.2-41.9); HEMOGLOBIN 10.7 g/dL (10.9-14.3); LYMPHOCYTES # (AUTO) 1.5 K/uL (20.0-40.0); LYMPHOCYTES % (AUTO) 29.2 % (20.5-51.5); MEAN CORPUSCULAR HEMOGLOBIN 34.8 uug (24.7-32.8); MEAN CORPUSCULAR HGB CONC 34 g/dL (32.3-35.6); MEAN CORPUSCULAR VOLUME 102.9 fL (75.5-95.3); MONOCYTES # (AUTO) 0.4 K/uL (2.0-10.0); MONOCYTES % (AUTO) 8.2 % (0.0-11.0); NEUTROPHILS # (AUTO) 2.9 K/uL (1.8-8.9); PLATELET COUNT (AUTO) 232 K/uL (179-408); RED BLOOD CELL COUNT(AUTO) 3.08 MIL/uL (3.63-4.92); WHITE BLOOD COUNT (AUTO) 5.2 K/uL (3.8-11.8)
[2018-05-21 06:52] LABS: ALANINE AMINOTRANSFERASE 29 U/L (14-59); ALKALINE PHOSPHATASE 47 U/L (50-136); ASPARTATE AMINOTRANSFERASE 31 U/L (15-37); BILIRUBIN,TOTAL 0.3 mg/dL (0.2-1.0); CARBON DIOXIDE 21 mmol/L (21-32); CHLORIDE 113 mmol/L (98-107); CREATININE 0.9 mg/dL (0.6-1.3); GLUCOSE 154 mg/dL (74-106); MAGNESIUM 1.8 mg/dL (1.8-2.4); PHOSPHOROUS 2.6 mg/dL (2.5-4.9); POTASSIUM 3.6 mmol/L (3.5-5.1); TOTAL PROTEIN, SERUM 5.4 g/dL (6.4-8.2); UREA NITROGEN, BLOOD 18 mg/dL (7-18)
[2018-05-21 06:58] VITALS: BP 90/50
--- NOTE | 2018-05-21 07:00 | NUR ---
PATIENT ASLEEP AND RESTING COMFORTABLY. IV PATENT AND INTACT ON RIGHT WRIST WITH D5ns RUNNING @ 75 mL/HR. ALL DUE MEDS GIVEN PRESCRIBED AND TOLERATED WELL. VS WNL. CALL LIGHT WITHIN REACH AT ALL TIMES. ROOM AND FLOOR FREE OF CLUTTER.
--- NOTE | 2018-05-21 07:25 | NUR ---
RECEIVED PATIENT ON BED, ASLEEP. NO ACUTE DISTRESS NOTED. ON TELE SINUS RHYTHM SINUS JUANITO. IV ACCESS ON THE LEFT WRIST #22 INTACT AND PATENT, RUNNING D5NS @ 75 CC/HR INFUSING WELL. GLUCOSE 134 WILL COVER WITH 2 UNITS APPEARS COMFORTABLE. COMFORT MEASURES PROVIDED. CALL LIGHT WITHIN REACH. WILL CONTINUE TO MONITOR CLOSELY.
[2018-05-21] MEDS: INSULIN REGULAR, HUMAN 300 UNIT/3 ML VIAL SQ PRN ×3 (07:43→22:02)
[2018-05-21] MEDS: ASPIRIN EC 81 MG TABLET.DR PO SCH (08:45)
[2018-05-21] MEDS: FLUOXETINE HCL 20 MG CAPSULE PO SCH (08:45)
[2018-05-21] MEDS: QUETIAPINE FUMARATE 25 MG TABLET PO SCH ×2 (08:45→21:22)
[2018-05-21 11:31] VITALS: BP 105/58
--- NOTE | 2018-05-21 12:35 | NUR ---
NOTED IV ACCESS ON RIGHT WRIST, NOT FUNCTIONING, PATIENT STATED PAIN WHEN FLUSHED. STARTED NEW IV ACCESS ON THE LEFT FOREARM #22 INTACT AND PATENT. RESUMED IVF. WILL CONTINUE TO MONITOR CLOSELY.
[2018-05-21 15:31] VITALS: BP 103/47
--- NOTE | 2018-05-21 18:48 | NUR ---
PATIENT STABLE THROUGHOUT SHIFT. NOW MEDSUR. ALL NEEDS ATTENDED AND ANTICIPATED. COMFORT MEASURES PROVIDED. WILL CONTINUE TO MONITOR CLOSELY.
[2018-05-21 20:11] VITALS: BP 115/62
[2018-05-21] MEDS: ATORVASTATIN 20 MG TABLET PO SCH (21:22)
--- NOTE | 2018-05-21 23:00 | NUR ---
RECEIVED REPORT FROM RN. PATIENT IS ASLEEP IN BED. RESTING WELL. IVF INFUSING WELL. BED ALARM ON. CALL LIGHT IN REACH. ALL NEED ATTENDED. WILL CONTINUE TO MONITOR AND ASSESS.
[2018-05-22 04:48] VITALS: BP 108/61
--- NOTE | 2018-05-22 06:00 | NUR ---
PATIENT AWAKE IN BED. VSS. SLEPT WELL. VSS. CALL LIGHT IN REACH. ALL NEEDS ATTENDED.
[2018-05-22] MEDS: PANTOPRAZOLE SODIUM 40 MG TABLET.DR PO SCH (06:11)
[2018-05-22] MEDS: CEphaleXIN 500 MG CAPSULE PO SCH ×2 (06:11→15:15)
[2018-05-22] MEDS: LEVOTHYROXINE SODIUM 125 MCG TABLET PO SCH (06:11)
[2018-05-22] MEDS: BLOOD SUGAR DIAGNOSTIC 1 EACH STRIP VI SCH ×4 (06:22→20:29)
[2018-05-22 06:45] LABS: BASOPHILS # (AUTO) 0.1 K/uL (0.0-8.0); BASOPHILS % (AUTO) 1.1 % (0.0-2.0); EOSINOPHILS # (AUTO) 0.4 K/uL (0.0-0.7); EOSINOPHILS % (AUTO) 6.1 % (0.0-7.0); HEMATOCRIT 31.2 % (31.2-41.9); HEMOGLOBIN 10.6 g/dL (10.9-14.3); LYMPHOCYTES # (AUTO) 1.4 K/uL (20.0-40.0); LYMPHOCYTES % (AUTO) 23.8 % (20.5-51.5); MEAN CORPUSCULAR HEMOGLOBIN 35.3 uug (24.7-32.8); MEAN CORPUSCULAR HGB CONC 34 g/dL (32.3-35.6); MEAN CORPUSCULAR VOLUME 103.9 fL (75.5-95.3); MONOCYTES # (AUTO) 0.5 K/uL (2.0-10.0); MONOCYTES % (AUTO) 8.5 % (0.0-11.0); NEUTROPHILS # (AUTO) 3.5 K/uL (1.8-8.9); NEUTROPHILS % (AUTO) 60.5 % (38.5-71.5); PLATELET COUNT (AUTO) 225 K/uL (179-408); RED BLOOD CELL COUNT(AUTO) 3.01 MIL/uL (3.63-4.92); WHITE BLOOD COUNT (AUTO) 5.9 K/uL (3.8-11.8)
--- NOTE | 2018-05-22 07:00 | NUR ---
PATIENT AO 3, NO RESP DISTRESS OR COMPLAINS, COMFORTABLE IN BED, SAFETY REINFORCED
[2018-05-22 07:29] LABS: THYROID STIMULATING HORMONE 172.124 mIU/mL (0.358-3.740)
[2018-05-22 07:41] LABS: CARBON DIOXIDE 18 mmol/L (21-32); CHLORIDE 111 mmol/L (98-107); GLUCOSE 107 mg/dL (74-106); MAGNESIUM 1.7 mg/dL (1.8-2.4); PHOSPHOROUS 2.5 mg/dL (2.5-4.9); POTASSIUM 3.5 mmol/L (3.5-5.1); UREA NITROGEN, BLOOD 19 mg/dL (7-18)
[2018-05-22] MEDS: FLUOXETINE HCL 20 MG CAPSULE PO SCH (09:17)
[2018-05-22] MEDS: QUETIAPINE FUMARATE 25 MG TABLET PO SCH ×2 (09:17→20:23)
[2018-05-22] MEDS: ASPIRIN EC 81 MG TABLET.DR PO SCH (09:17)
[2018-05-22] MEDS: MAGNESIUM SULFATE/D5W 100 ML IV SCH ×2 (10:11→12:26)
[2018-05-22 11:02] VITALS: BP 110/75
[2018-05-22] MEDS: INSULIN REGULAR, HUMAN 300 UNIT/3 ML VIAL SQ PRN ×2 (12:00→20:31)
[2018-05-22 15:10] VITALS: BP 146/50
--- NOTE | 2018-05-22 18:54 | NUR ---
PATIENT IS AO 3, NO DISTRESS THIS SHIFT , SEEN BY DR SCHRADER, D5 IS RUNNING AT 75/HR, MIDLINE SIZE 18GLEFT BIS WAS STARTED TODAY PER ORDER, HOB ELEVATED THIS SHIFT SAFETY MAINTAINED, MG REPLACED WITH 2 BAGS
[2018-05-22] MEDS: IV D5/ 0.9% NACL 1,000 ML IV PRN (19:03)
--- NOTE | 2018-05-22 19:30 | NUR ---
Received patient awake, alert and ambulatory with walker. Patient not in any form of distress. On room air, tolerated. With midline at the left upper arm to ongoing IVF, infusing well. Still with peripheral access at right forearm, 22g, to saline lock, intact. No complaints at the moment. Bed in low position, locked, side rails up, call light within reach. Noted patient mozambican speaking. Noise and lights subdued. Will continue to monitor.
[2018-05-22 20:07] VITALS: BP 126/71
[2018-05-22] MEDS: ATORVASTATIN 20 MG TABLET PO SCH (20:23)
[2018-05-23 05:55] VITALS: BP 119/66
[2018-05-23 06:09] LABS: ALANINE AMINOTRANSFERASE 18 U/L (14-59); ALKALINE PHOSPHATASE 53 U/L (50-136); ASPARTATE AMINOTRANSFERASE 17 U/L (15-37); BILIRUBIN,TOTAL 0.3 mg/dL (0.2-1.0); CARBON DIOXIDE 21 mmol/L (21-32); CHLORIDE 111 mmol/L (98-107); CREATININE 0.8 mg/dL (0.6-1.3); GLUCOSE 156 mg/dL (74-106); MAGNESIUM 2.2 mg/dL (1.8-2.4); PHOSPHOROUS 2.1 mg/dL (2.5-4.9); POTASSIUM 3.5 mmol/L (3.5-5.1); TOTAL PROTEIN, SERUM 5.2 g/dL (6.4-8.2); UREA NITROGEN, BLOOD 15 mg/dL (7-18)
[2018-05-23] MEDS: LEVOTHYROXINE SODIUM 125 MCG TABLET PO SCH (06:18)
[2018-05-23] MEDS: PANTOPRAZOLE SODIUM 40 MG TABLET.DR PO SCH (06:18)
--- NOTE | 2018-05-23 06:27 | NUR ---
Patient slept well throughout the night. No complaints made. No distress noted. Still with peripheral IV access at right arm and midline at left upper arm, both patent and intact. Attended all needs. Ensured safety and comfort.
[2018-05-23] MEDS: BLOOD SUGAR DIAGNOSTIC 1 EACH STRIP VI SCH ×4 (06:33→20:20)
--- NOTE | 2018-05-23 07:15 | NUR ---
SLEEPING IN HER BED WITH NO RESPIRATORY DISTRESS REMAIN ON IVF ORDERED WITH NO S/S OF INFILTERATION ON ROUNDS NO S/S OF HYPO/HYPERGLYCEMIC REACTIONS MADE COMFORTABLE AND WILL CONTINUE TO OBSERVE PATIENT.
[2018-05-23] MEDS: INSULIN REGULAR, HUMAN 300 UNIT/3 ML VIAL SQ PRN ×2 (08:11→12:30)
[2018-05-23] MEDS: QUETIAPINE FUMARATE 25 MG TABLET PO SCH ×2 (08:24→20:16)
[2018-05-23] MEDS: FLUOXETINE HCL 20 MG CAPSULE PO SCH (08:24)
[2018-05-23] MEDS: ASPIRIN EC 81 MG TABLET.DR PO SCH (08:25)
[2018-05-23] MEDS: NEUTRA PHOS PACKET PO SCH ×3 (10:19→17:20)
[2018-05-23] MEDS: IV D5/ 0.9% NACL 1,000 ML IV PRN (10:19)
--- NOTE | 2018-05-23 11:03 | NUR ---
PHOSPHORUS LEVEL IS 2.1 REVIEWED BY PASCHUAL COMMAND CENTER OFFICER WITH NEW ORDERS AND NOTED
[2018-05-23 11:14] VITALS: BP 117/59
[2018-05-23 15:09] VITALS: BP 130/52
--- NOTE | 2018-05-23 19:20 | NUR ---
Received patient lying in bed. AAOx3. Uruguayan speaking. In no acute distress. Denies any pain or SOB. Needs assessed and attended to. Assisted to bathroom per patient request, ambulated with front wheel walker with assist. Midline on left upper arm intact and patent. IVF infusing. IV line on right FA also patent and intact. Safety measure initiated and call suero within reach.
[2018-05-23] MEDS: ATORVASTATIN 20 MG TABLET PO SCH (20:16)
[2018-05-23 21:42] VITALS: BP 117/78
[2018-05-24] MEDS: IV D5/ 0.9% NACL 1,000 ML IV PRN ×2 (03:27→17:07)
[2018-05-24 05:16] VITALS: BP 125/65
[2018-05-24] MEDS: LEVOTHYROXINE SODIUM 125 MCG TABLET PO SCH (06:11)
[2018-05-24] MEDS: PANTOPRAZOLE SODIUM 40 MG TABLET.DR PO SCH (06:11)
--- NOTE | 2018-05-24 06:24 | NUR ---
AAOx3. In no acute distress. Denies any pain or SOB. Midline on left upper arm intact and patent. IV line on right FA patent and intact. IVF infusing. Safety measure maintained and call suero within reach.
[2018-05-24] MEDS: BLOOD SUGAR DIAGNOSTIC 1 EACH STRIP VI SCH ×4 (06:31→20:36)
[2018-05-24 06:42] LABS: BASOPHILS # (AUTO) 0.1 K/uL (0.0-8.0); BASOPHILS % (AUTO) 1.1 % (0.0-2.0); EOSINOPHILS # (AUTO) 0.3 K/uL (0.0-0.7); EOSINOPHILS % (AUTO) 5.9 % (0.0-7.0); HEMATOCRIT 28.4 % (31.2-41.9); HEMOGLOBIN 9.7 g/dL (10.9-14.3); LYMPHOCYTES # (AUTO) 1.2 K/uL (20.0-40.0); LYMPHOCYTES % (AUTO) 22.5 % (20.5-51.5); MEAN CORPUSCULAR HEMOGLOBIN 35.5 uug (24.7-32.8); MEAN CORPUSCULAR HGB CONC 34 g/dL (32.3-35.6); MONOCYTES # (AUTO) 0.4 K/uL (2.0-10.0); NEUTROPHILS # (AUTO) 3.3 K/uL (1.8-8.9); NEUTROPHILS % (AUTO) 62.5 % (38.5-71.5); PLATELET COUNT (AUTO) 178 K/uL (179-408); RED BLOOD CELL COUNT(AUTO) 2.73 MIL/uL (3.63-4.92); WHITE BLOOD COUNT (AUTO) 5.3 K/uL (3.8-11.8)
[2018-05-24 06:46] LABS: CARBON DIOXIDE 23 mmol/L (21-32); CHLORIDE 111 mmol/L (98-107); CREATININE 0.8 mg/dL (0.6-1.3); GLUCOSE 132 mg/dL (74-106); MAGNESIUM 1.9 mg/dL (1.8-2.4); PHOSPHOROUS 2.2 mg/dL (2.5-4.9); POTASSIUM 3.2 mmol/L (3.5-5.1); UREA NITROGEN, BLOOD 14 mg/dL (7-18)
[2018-05-24 08:26] LABS: THYROID STIMULATING HORMONE 115.416 mIU/mL (0.358-3.740)
[2018-05-24] MEDS: ASPIRIN EC 81 MG TABLET.DR PO SCH (08:58)
[2018-05-24] MEDS: QUETIAPINE FUMARATE 25 MG TABLET PO SCH ×2 (08:58→20:37)
[2018-05-24] MEDS: FLUOXETINE HCL 20 MG CAPSULE PO SCH (08:58)
--- NOTE | 2018-05-24 09:00 | NUR ---
UP SEATED ON THE CHAIR AND TOLERATED WELL ABLE TO AMBULATE WITH THE FRONT WHEEL WALKER TO AND FROM THE BATHROOM CONTINENT AT THIS TIME.REMAIN ON IVF ORDERED WITH NO S/S OF INFILTERATION ON SITE NO S/S OF HYPO/HYPERGLYCEMIC REACTIONS AT THIS TIME MADE COMFORTABLE.
[2018-05-24] MEDS ORDERED: POTASSIUM CHLORIDE 20 MEQ TAB.PRT.SR PO ONE (10:45)
[2018-05-24 11:04] VITALS: BP 110/59
[2018-05-24] MEDS: INSULIN REGULAR, HUMAN 300 UNIT/3 ML VIAL SQ PRN ×2 (11:37→20:37)
--- NOTE | 2018-05-24 12:50 | NUR ---
DR REINOSO HERE TO SEE PATIENT WITH NEW ORDERS AND NOTED.
--- NOTE | 2018-05-24 13:00 | NUR ---
POTASSIUM LEVEL IS 3.2 AND PHOS IS 2.2 MD AWARE WITH NEW ORDERS AND NOTED.
[2018-05-24 15:10] VITALS: BP 114/57
[2018-05-24] MEDS: NEUTRA PHOS PACKET PO SCH (16:46)
--- NOTE | 2018-05-24 17:47 | NUR ---
RESTING EATING DINNER IN BED COOPERATIVE AND COMPLIANT BLOOD SUGAR IS 116 WITH NO S/S OF HYPO/HYPERGLYCEMIC REACTIONS AT THIS TIME WILL CONTINUE TO OBSERVE.
[2018-05-24 19:51] VITALS: BP 99/63
--- NOTE | 2018-05-24 20:00 | NUR ---
RECEIVED PATIENT ASLEEP IN BED. EASILY AROUSABLE. A/O X3. BENGALI SPEAKING BUT ABLE TO MAKE SIMPLE NEEDS KNOWN. DENIES PAIN OR DISCOMFORT. NO RESP. DISTRESS NOTED. IVF INFUSING WELL TO LEFT UPPER ARM, MID-LINE. VSS. BED ALARM ON. CALL LIGHT IN REACH. BED ALARM ON. ALL NEEDS ATTENDED. WILL CONTINUE TO MONITOR AND ASSESS.
[2018-05-24] MEDS: ATORVASTATIN 20 MG TABLET PO SCH (20:37)
[2018-05-25 05:34] VITALS: BP 116/65
--- NOTE | 2018-05-25 06:26 | NUR ---
PATIENT ASLEEP. EASILY AROUSABLE. SLEPT WELL. DENIES PAIN. BED ALARM ON. CALL LIGHT IN REACH. ALL NEEDS ATTENDED, WILL CONTINUE TO MONITOR.
[2018-05-25] MEDS: PANTOPRAZOLE SODIUM 40 MG TABLET.DR PO SCH (06:36)
[2018-05-25] MEDS: LEVOTHYROXINE SODIUM 125 MCG TABLET PO SCH (06:36)
[2018-05-25] MEDS: BLOOD SUGAR DIAGNOSTIC 1 EACH STRIP VI SCH ×2 (06:48→11:17)
[2018-05-25] MEDS: IV D5/ 0.9% NACL 1,000 ML IV PRN (06:48)
--- NOTE | 2018-05-25 07:15 | NUR ---
RECEIVED IN BED ASLEEP EASILY AROUSABLE ON ROUNDS NO S/S OF DISCOMFORTS AT THIS TIME NO S/S OF HYPO/HYPERGLYCEMIC REACTIONS REMAIN ON IVF ORDERED ALL NEEDS ANTICIPATED AND SATISFIED MADE COMFORTABLE AND WILL CONTINUE TO OBSERVE.
[2018-05-25 08:06] LABS: TRIIODOTHYRONINE, FREE 0.9 pg/mL (2.0-4.4)
[2018-05-25] MEDS: ASPIRIN EC 81 MG TABLET.DR PO SCH (08:25)
[2018-05-25] MEDS: NEUTRA PHOS PACKET PO SCH (08:25)
[2018-05-25] MEDS: FLUOXETINE HCL 20 MG CAPSULE PO SCH (08:25)
[2018-05-25] MEDS: QUETIAPINE FUMARATE 25 MG TABLET PO SCH (08:25)
[2018-05-25] MEDS ORDERED: LEVO125T8 PO (10:39)
[2018-05-25] MEDS ORDERED: QUET25TA PO (11:02)
[2018-05-25] MEDS ORDERED: FLUO-120 PO (11:02)
--- NOTE | 2018-05-25 11:18 | NUR ---
PATIENT SEEN AND EXAMINED BY RICHARD SIU WITH [facility] AWARE AND STATED WILL MAKE ARRANGEMENTS.
[2018-05-25 11:25] VITALS: BP 111/62
--- NOTE | 2018-05-25 13:28 | NUR ---
CALLED THE [facility] AND REPORT GIVEN TO NADIA FOR CONTINUING CARE PATIENT WILL BE PICKED UP ABOUT 1400 AND TSH SHOULD BE RECHECKED IN 7 DAYS AND SHE EXPRESSED UNDERSTANDING.
--- NOTE | 2018-05-25 14:30 | NUR ---
PATIENT DISCHARGED PICKED UP BY THE AMBULANCE IN SATISFACTORY CONDITION WITH ALL HER PERSONAL BELONGINGS MID LINE WAS REMOVED WITH PRESSURE DRESSING ON SITE.
== END 2018-05-25 14:30 | DRG 643 ==
LOC: TELE3 20:47 → MEDSURG3 05-21 14:00
PROVIDERS: ADMIT Hospitalist; ATTEND Hospitalist
PROC: 05HY33Z Insertion of Infusion Device into Upper Vein, Percutaneous Approach (ICD-10-PCS; principal; 2018-05-22)
DX: E03.9 Hypothyroidism, unspecified (principal); G93.41 Metabolic encephalopathy; I21.A1 Myocardial infarction type 2; F33.3 Major depressive disorder, recurrent, severe with psychotic symptoms; N17.9 Acute kidney failure, unspecified; N39.0 Urinary tract infection, site not specified; I95.89 Other hypotension; F03.90 Unspecified dementia, unspecified severity, without behavioral disturbance, psychotic disturbance, mood disturbance, and anxiety; R00.1 Bradycardia, unspecified; I25.10 Atherosclerotic heart disease of native coronary artery without angina pectoris; E83.42 Hypomagnesemia; E87.6 Hypokalemia; S90.121A Contusion of right lesser toe(s) without damage to nail, initial encounter; X58.XXXA Exposure to other specified factors, initial encounter; Y92.89 Other specified places as the place of occurrence of the external cause; E11.22 Type 2 diabetes mellitus with diabetic chronic kidney disease; N18.9 Chronic kidney disease, unspecified; M77.30 Calcaneal spur, unspecified foot; M21.20 Flexion deformity, unspecified site; I12.9 Hypertensive chronic kidney disease with stage 1 through stage 4 chronic kidney disease, or unspecified chronic kidney disease; E78.5 Hyperlipidemia, unspecified; E83.39 Other disorders of phosphorus metabolism; G31.9 Degenerative disease of nervous system, unspecified; Z91.19 Patient's noncompliance with other medical treatment and regimen; J45.909 Unspecified asthma, uncomplicated; Z79.84 Long term (current) use of oral hypoglycemic drugs; Z79.82 Long term (current) use of aspirin; Z79.899 Other long term (current) drug therapy
CPT/HCPCS: 36415; 36569; 70030-TC; 70450; 71045; 73630; 82533; 83735; 84100; 84443; 84480; 84481; 85025; 93005; 93307; 97110; 97116; 97530; A4663; G0378; J1815; J3475; J3490; J7030; J7042